=== PATIENT | female | born 1965 | race Caucasian/White ===

== ENCOUNTER → 2016-08-03 | Outpatient (CLI) | payer OTHER ==
[~2016-08-03] VITALS: Ht 170.2 cm; Wt 72.6 kg
[~2016-08-03] MED LIST: ALEVE220 MG PO; ASPIRIN 32325 MG/TAB PO; ASPIRIN E.C. 8181 MG PO; BUPROPION HCL150 M1 PO; FUROSEMIDE40 MG PO; MICROZIDE12.5 MG PO; MULTIPLE VITAMI1 CAP PO; NEXIUM 40MG40 MG; NEXIUM 40MG40 MG PO; PHENTERMINE30 MG PO; POTASSIUM CH2 MEQ/ML PO; TOPIRAMATE25 M1 PO; TYLENOL 325MG325 MG PO; TYLENOL ARTHRI650 M1 PO; WELLBUTRIN XL150 MG
[2016-08-03 16:05] VITALS: BP 131/83; PULSE 75
[2016-08-03 16:30] VITALS: BP 131/83; PULSE 75
== END ==
LOC: LIGHT 14:21
DX: I10 Essential (primary) hypertension (principal); E78.4 Other hyperlipidemia; K21.9 Gastro-esophageal reflux disease without esophagitis; E66.3 Overweight; Z68.24 Body mass index [BMI] 24.0-24.9, adult

== ENCOUNTER → 2016-09-05 | Outpatient (REF) | LOC: ZLAB.WCH 10:22 | DX: Z01.89 Encounter for other specified special examinations (principal) ==

== ENCOUNTER → 2017-03-15 | Outpatient (CLI) | payer OTHER | LOC: MC.RAD 14:15 | DX: Z12.31 Encounter for screening mammogram for malignant neoplasm of breast (principal); Z98.82 Breast implant status ==

== ENCOUNTER → 2017-08-02 | Outpatient (CLI) | payer OTHER ==
[~2017-08-02] VITALS: Ht 170.2 cm; Wt 83.5 kg
[~2017-08-02] MED LIST changes: +TOPAMAX 25MG25 M1 PO; +WELLBUTRIN XL150 MG PO
[2017-08-02 16:56] VITALS: BP 148/82; PULSE 64
== END ==
LOC: LIGHT 11-02 15:57
DX: E78.5 Hyperlipidemia, unspecified (principal); E66.3 Overweight; Z68.28 Body mass index [BMI] 28.0-28.9, adult; Z71.3 Dietary counseling and surveillance; K21.9 Gastro-esophageal reflux disease without esophagitis
CPT/HCPCS: G0463

== ENCOUNTER → 2017-08-13 | Outpatient (REF) ==
[2017-08-13 18:23] LABS: IRON,SERUM 57 ug/dL (35-150)
[2017-08-13 18:32] LABS: TOTAL IRON BINDING CAPACITY 340 ug/dL (265-497)
[2017-08-13 19:01] LABS: FERRITIN 8 ng/mL (11-264)
== END ==
LOC: ZLAB.WCH 18:02
PROVIDERS: Family Medicine
DX: Z01.89 Encounter for other specified special examinations (principal)

== ENCOUNTER → 2017-08-30 | Outpatient (CLI) | payer OTHER ==
[~2017-08-30] VITALS: Ht 170.2 cm; Wt 80.5 kg
[~2017-08-30] MED LIST changes: -TOPAMAX 25MG25 M1 PO; +TOPAMAX50 MG PO
[2017-08-30 14:48] VITALS: BP 134/76; PULSE 76
== END ==
LOC: LIGHT 12:37
DX: I10 Essential (primary) hypertension (principal); E78.5 Hyperlipidemia, unspecified; E66.3 Overweight; Z68.27 Body mass index [BMI] 27.0-27.9, adult; Z71.3 Dietary counseling and surveillance; K21.9 Gastro-esophageal reflux disease without esophagitis
CPT/HCPCS: G0463

== ENCOUNTER → 2017-11-08 | Outpatient (CLI) | payer OTHER ==
[~2017-11-08] VITALS: Ht 170.2 cm; Wt 81.2 kg
[~2017-11-08] MED LIST changes: +ADIPEX-P37.5 MG PO; +TOPAMAX 100MG100 M1 PO; -TOPAMAX50 MG PO
[2017-11-08 16:29] VITALS: BP 130/88; PULSE 80
== END ==
LOC: LIGHT 14:07
DX: I10 Essential (primary) hypertension (principal); E78.5 Hyperlipidemia, unspecified; E66.3 Overweight; Z68.28 Body mass index [BMI] 28.0-28.9, adult; Z71.3 Dietary counseling and surveillance; K21.9 Gastro-esophageal reflux disease without esophagitis
CPT/HCPCS: G0463

== ENCOUNTER → 2018-03-21 | Outpatient (CLI) | payer OTHER ==
[~2018-03-21] VITALS: Ht 170.2 cm; Wt 79.4 kg
[2018-03-21 15:51] VITALS: BP 128/80; PULSE 86
== END ==
LOC: LIGHT 01-03 16:13
DX: I10 Essential (primary) hypertension (principal); E78.5 Hyperlipidemia, unspecified; K21.9 Gastro-esophageal reflux disease without esophagitis; E66.3 Overweight; Z68.27 Body mass index [BMI] 27.0-27.9, adult; Z71.3 Dietary counseling and surveillance
CPT/HCPCS: G0463

== ENCOUNTER → 2018-09-03 | Outpatient (REF) | LOC: ZLAB.WCH 17:34 | DX: Z01.89 Encounter for other specified special examinations (principal) ==

== ENCOUNTER → 2018-11-22 | Outpatient (CLI) | payer OTHER | LOC: MC.RAD 11:36 | DX: Z12.31 Encounter for screening mammogram for malignant neoplasm of breast (principal) ==

== ENCOUNTER 2019-12-17 05:33 | Day surgery (SDC) | payer OTHER ==
[~2019-12-17] VITALS: Ht 170.2 cm; Wt 80.8 kg
[2019-12-17] VITALS (12 sets, daily range): BP systolic 127–152; BP diastolic 70–88; PULSE 74–89; TEMP 97.7–98.7
[2019-12-17] MEDS ORDERED: WELLBUTRIN SR150 M1 PO (05:50)
--- NOTE | 2019-12-17 07:15 | NUR ---
The patient was taken via cart to the operating room at this time. The patient's chart was sent with her to surgery. The patient's returned to the waiting room where he will stay to receive updates from the operating room nurse. The patient's belongings were taken over to the recovery room and will be transferred with the patient up to the 3rd floor post operatively.
--- NOTE | 2019-12-17 11:00 | NUR ---
Patient to room 322 post op. Alert and oriented, answers questions appropriately. See assessment. Abdomen soft, non tender, non distended. Bowel sounds audible x4 quads. No flatus. Abdomen with lap sites x5, band aids CDI. Post op exercises reviewed. No c/o at this time.
[2019-12-18 04:00] VITALS: BP 135/77; PULSE 83; TEMP 98.2
[2019-12-18 09:15] VITALS: BP 151/84; PULSE 68; TEMP 97.6
--- NOTE | 2019-12-18 09:47 | NUR ---
PATIENT INDEPENDENT IN ROOM. LUNGS SOUNDS CTA, BOWEL SOUNDS PRESENT, PT REPORTS HAVE BM THIS AM. EATING AND DRINKING WITH MILD NAUSEA. BANDAIDS OVER INCISIONS CDI. PT IS A/O X3.
[2019-12-18] MEDS ORDERED: ULTRAM 50MG TAB50 MG PO (12:06)
[2019-12-18 12:59] VITALS: BP 135/87; PULSE 77; TEMP 98.3
--- NOTE | 2019-12-18 13:44 | NUR ---
DISCHARGE INSTRUCTIONS REVIEWED WITH PT. QUESTIONS ANSWERED. PT AMBULATORY TO FRONT WITH STAFF.
== END 2019-12-18 13:47 | disposition home or self-care (01) ==
LOC: SDCO 05:33 → SURG 10:55 → SDCO 12-18 13:47
DX: K21.9 Gastro-esophageal reflux disease without esophagitis (principal); K44.9 Diaphragmatic hernia without obstruction or gangrene; Z98.84 Bariatric surgery status; Z90.3 Acquired absence of stomach [part of]; Z80.3 Family history of malignant neoplasm of breast; Z15.01 Genetic susceptibility to malignant neoplasm of breast; Z79.82 Long term (current) use of aspirin; Z79.899 Other long term (current) drug therapy
CPT/HCPCS: OP; C1781; J0690; J1100; J1170; J1885; J2405; J2704; J3010; J7120